=== PATIENT | female | born 1940 | race Caucasian/White ===

== ENCOUNTER 2016-08-07 10:29 | Observation (INO) | payer MEDICARE ==
[~2016-08-07] VITALS: Ht 157.5 cm; Wt 86.0 kg
[~2016-08-07 10:29] MED LIST: ASPI81TA82 PO; NORV5TAB PO; PRAV40TA2 PO; PROT40TA PO; RIVA15 PO; RIVA20 PO; TRAM50 PO; Z.0.WALKERFRONT
[2016-08-07 10:40] VITALS: BP 127/73; PULSE 74; RESP 18; TEMP 97.8; O2SAT 99
[2016-08-07 10:45] VITALS: RESP 18; O2SAT 98
[2016-08-07] MEDS ORDERED: ASPI1TAB69 PO (10:47)
[2016-08-07 10:53] VITALS: BP_SYST 120; BP_SYST 127; BP_DIAS 59; BP_DIAS 73; PULSE 78; RESP 18; O2SAT 98
--- NOTE | 2016-08-07 10:53 | PD ---
HPI Chief Complaint: Chest Pain Time Seen by Provider: 10:39 Travel History International Travel<30 days: No Contact w/Intl Traveler<30days: No Traveled to known affect area: No History of Present Illness HPI The patient is a 76-year-old female who presents to the emergency department via EMS for chest pain. The patient states she awakened at 3 AM to use the restroom and when she walked back to the bedroom she developed chest pain. The chest pain was located over the mid sternal area to right aspect of the chest, radiated to the neck and jaw as well as the right shoulder. The pain initially was dull and achy, now is described as sharp. The chest pain is resolved but she continues to have right shoulder and right sided neck and jaw pain. The patient denies any shortness of breath, nausea, or vomiting. She did complain of mild dizziness with the chest pain, states it is similar to the pain she had several years ago when she had a stent placed by her deblocker, Dr. Davila. The patient stopped most of her medications on her own including Norvasc, pravastatin, and Xarelto. The patient only takes a baby aspirin daily. The patient does have a history of CAD with previous stent placement, tobacco use, and hyperlipidemia. She denies any history of diabetes or hypertension. The patient also states she does not currently have a primary physician. PFSH Past Medical History Hx Anticoagulant Therapy: Yes Arthritis: Yes Asthma: No Autoimmune Disease: No Blood Disorders: No Anxiety: No Depression: No Heart Rhythm Problems: No Cancer: No Cardiac Catheterization: Yes (X1 STENT 05/25/2012) Cardiovascular Problems: Yes (HBP, [place] ) High Cholesterol: No Chest Pain: Yes Congestive Heart Failure: No COPD: No Cerebrovascular Accident: No Diabetes: No Diminished Hearing: No GERD: No Glaucoma: No Genitourinary: No Headaches: Yes Hiatal Hernia: No Hypertension: Yes Kidney Stones: No Musculoskeletal: Yes (FX RIBS, LEG,ARM) Neurologic: Yes (FX SKULL) Psychiatric: No Respiratory: No Renal Failure: No Seizures: No Sleep Apnea: No Ulcer: No Menopausal: Yes : 6 Para: 5 Ectopic : Yes Past Surgical History Abdominal Surgery: Yes (APPENDECTOMY) Appendectomy: Yes Cardiac Surgery: Yes (STENTS ) Section: Yes Cholecystectomy: Yes Ear Surgery: No Endocrine Surgery: Yes (FX SKULL/SURG) Eye Surgery: No Genitourinary Surgery: No Gynecologic Surgery: No Hysterectomy: Yes Neurologic Surgery: Yes Oral Surgery: Yes (TEETH PULLED) Thoracic Surgery: Yes (RIBS BROKEN) Other Surgery: Yes (PUNCTURED LIVER) Social History Alcohol Use: Yes (RARE) Tobacco Use: Yes (1 ppd) Substance Use: No Allergies-Medications (Allergen,Severity, Reaction): Coded Allergies: No Known Allergies (Verified , 08/07/16) Reported Meds & Prescriptions Reported Meds & Active Scripts Active Reported Aspirin 81 Mg Tabdr 81 Mg PO DAILY Review of Systems Except as stated in HPI: all other systems reviewed are Neg General / Constitutional: No: Fever HENT: No: Lightheadedness Cardiovascular: Positive: Chest Pain or Discomfort, No: Dyspnea on exertion Respiratory: No: Shortness of Breath Gastrointestinal: No: Nausea, Vomiting, Abdominal Pain Neurologic: Positive: Dizziness Physical Exam Narrative GENERAL: Awake, alert, pleasant 76-year-old female who appears her stated age and is in no acute respiratory distress. SKIN: Focused skin assessment warm/dry. HEAD: Atraumatic. Normocephalic. EYES: No injection or drainage. ENT: No nasal bleeding or discharge. Mucous membranes pink and moist. NECK: Trachea midline. No JVD. CARDIOVASCULAR: Regular rate and rhythm. No murmur appreciated. Palpation the chest wall does not reproduce her symptoms. RESPIRATORY: No accessory muscle use. Clear to auscultation. Breath sounds equal bilaterally. GASTROINTESTINAL: Abdomen soft, non-tender, nondistended. No rebound tenderness. MUSCULOSKELETAL: No obvious deformities. No clubbing. No cyanosis. No edema. Extension of the shoulder and abduction and adduction of the right shoulder does not reproduce her symptoms. NEUROLOGICAL: Awake and alert. No obvious cranial nerve deficits. Motor grossly within normal limits. Normal speech. Nonfocal. PSYCHIATRIC: Appropriate mood and affect; insight and judgment normal. Data Data Last Documented VS Vital Signs Date Time Temp Pulse Resp B/P Pulse Ox O2 Delivery O2 Flow Rate FiO2 08/07/16 10:53 78 18 127/73 98 Room Air 120/59 08/07/16 10:40 97.8 Orders Electrocardiogram (08/07/16 ) Electrocardiogram (08/07/16 10:46) Ckmb (Isoenzyme) Profile (08/07/16 10:46) Complete Blood Count With Diff (08/07/16 10:46) Comprehensive Metabolic Panel (08/07/16 10:46) Magnesium (Mg) (08/07/16 10:46) Prothrombin Time / Inr (Pt) (08/07/16 10:46) Act Partial Throm Time (Ptt) (08/07/16 10:46) Troponin I (08/07/16 10:46) Lipase (08/07/16 10:46) Chest, Single Ap (08/07/16 10:46) Ecg Monitoring (08/07/16 10:46) Bilateral Bp Monitoring (08/07/16 10:46) Iv Access Insert/Monitor (08/07/16 10:46) Oximetry (08/07/16 10:46) Oxygen Administration (08/07/16 10:46) Nitroglycerin 2% Oint (Nitroglycerin 2% (08/07/16 11:00) Sodium Chloride 0.9% Flush (Ns Flush) (08/07/16 11:00) Sodium Chlorid 0.9% 500 Ml Inj (Ns 500 M (08/07/16 11:00) Ct Pulmonary Angiogram (08/07/16 ) Iohexol 350 Inj (Omnipaque 350 Inj) (08/07/16 12:28) Labs Laboratory Tests Test 08/07/16 10:53 White Blood Count 7.2 TH/MM3 Red Blood Count 4.61 MIL/MM3 Hemoglobin 14.0 GM/DL Hematocrit 42.5 % Mean Corpuscular Volume 92.1 FL Mean Corpuscular Hemoglobin 30.3 PG Mean Corpuscular Hemoglobin 32.9 % Concent Red Cell Distribution Width 14.6 % Platelet Count 184 TH/MM3 Mean Platelet Volume 9.3 FL Neutrophils (%) (Auto) 52.1 % Lymphocytes (%) (Auto) 33.3 % Monocytes (%) (Auto) 10.3 % Eosinophils (%) (Auto) 3.7 % Basophils (%) (Auto) 0.6 % Neutrophils # (Auto) 3.7 TH/MM3 Lymphocytes # (Auto) 2.4 TH/MM3 Monocytes # (Auto) 0.7 TH/MM3 Eosinophils # (Auto) 0.3 TH/MM3 Basophils # (Auto) 0.0 TH/MM3 CBC Comment DIFF FINAL Differential Comment Prothrombin Time 11.2 SEC Prothromb Time International 1.0 RATIO Ratio Activated Partial 24.0 SEC Thromboplast Time Sodium Level 141 MEQ/L Potassium Level 3.7 MEQ/L Chloride Level 108 MEQ/L Carbon Dioxide Level 28.7 MEQ/L Anion Gap 4 MEQ/L Blood Urea Nitrogen 13 MG/DL Creatinine 0.60 MG/DL Estimat Glomerular Filtration 98 ML/MIN Rate Random Glucose 97 MG/DL Calcium Level 8.7 MG/DL Magnesium Level 1.8 MG/DL Total Bilirubin 0.3 MG/DL Aspartate Amino Transf 14 U/L (AST/SGOT) Alanine Aminotransferase 19 U/L (ALT/SGPT) Alkaline Phosphatase 87 U/L Total Creatine Kinase 72 U/L Troponin I LESS THAN 0.02 NG/ML Total Protein 5.7 GM/DL Albumin 3.0 GM/DL Lipase 122 U/L Exceptions Acute Myocardial Infarction ASA Not Given on Arrival: Already Given by EMS MDM Medical Decision Making Medical Screen Exam Complete: Yes Emergency Medical Condition: Yes Medical Record Reviewed: Yes Interpretation(s) EKG reveals normal sinus rhythm with a rate of 76. RSR prime in V1. Last Impressions Chest X-Ray 08/07/16 1046 Signed Impressions: Service Date/Time: Sunday, August 07, 2016 10:44 - CONCLUSION: No acute disease. Kemar Hernandez MD Laboratory Tests Test 08/07/16 10:53 White Blood Count 7.2 TH/MM3 Red Blood Count 4.61 MIL/MM3 Hemoglobin 14.0 GM/DL Hematocrit 42.5 % Mean Corpuscular Volume 92.1 FL Mean Corpuscular Hemoglobin 30.3 PG Mean Corpuscular Hemoglobin 32.9 % Concent Red Cell Distribution Width 14.6 % Platelet Count 184 TH/MM3 Mean Platelet Volume 9.3 FL Neutrophils (%) (Auto) 52.1 % Lymphocytes (%) (Auto) 33.3 % Monocytes (%) (Auto) 10.3 % Eosinophils (%) (Auto) 3.7 % Basophils (%) (Auto) 0.6 % Neutrophils # (Auto) 3.7 TH/MM3 Lymphocytes # (Auto) 2.4 TH/MM3 Monocytes # (Auto) 0.7 TH/MM3 Eosinophils # (Auto) 0.3 TH/MM3 Basophils # (Auto) 0.0 TH/MM3 CBC Comment DIFF FINAL Differential Comment Prothrombin Time 11.2 SEC Prothromb Time International 1.0 RATIO Ratio Activated Partial 24.0 SEC Thromboplast Time Sodium Level 141 MEQ/L Potassium Level 3.7 MEQ/L Chloride Level 108 MEQ/L Carbon Dioxide Level 28.7 MEQ/L Anion Gap 4 MEQ/L Blood Urea Nitrogen 13 MG/DL Creatinine 0.60 MG/DL Estimat Glomerular Filtration 98 ML/MIN Rate Random Glucose 97 MG/DL Calcium Level 8.7 MG/DL Magnesium Level 1.8 MG/DL Total Bilirubin 0.3 MG/DL Aspartate Amino Transf 14 U/L (AST/SGOT) Alanine Aminotransferase 19 U/L (ALT/SGPT) Alkaline Phosphatase 87 U/L Total Creatine Kinase 72 U/L Troponin I LESS THAN 0.02 NG/ML Total Protein 5.7 GM/DL Albumin 3.0 GM/DL Lipase 122 U/L CT pulmonary angiogram is negative for PE. No infiltrate or pleural effusion. Left renal low densities, indeterminate. Renal ultrasound maybe warranted. Differential Diagnosis Differential diagnosis includes acute coronary syndrome, GERD, esophageal spasm , neuropathy, rotator cuff injury, costochondritis, pleural effusion, pneumonia , Pancoast tumor. Narrative Course IV was established, labs are drawn and sent, and the patient was placed on cardiac telemetry monitoring and continuous pulse oximetry monitoring. EKG was ordered and interpreted. Chest x-ray was obtained. The patient received aspirin by EMS prior to arrival. The patient was placed on Nitropaste and administer 500 cc of normal saline. I reviewed the patient's EMR, she had a stent placed by Dr. Davila on June 23, 2012, a branch off of the LAD with 85% stenosis. The patient does have multiple risk factors including CAD, hyperlipidemia, tobacco use, is currently noncompliant. Chest x-rays unremarkable. Initial troponin is negative. The patient was reevaluated at 11: 40 AM, her pain was resolving. Therefore, call was placed to her deblocker, Dr. Jigar Davila, at 11:45 AM. I discussed patient Dr. Davila who states the patient does have a history of PE, recommended CT for angiogram for possible PE. If CTA is negative, he recommends admission to the chest pain Center. The patient's CT pulmonary angiogram is negative, patient will be admitted to the chest pain center. Physician Communication Physician Communication The patient will be 23 hour observation to the chest pain center for serial cardiac enzymes and further evaluation by cardiology. Diagnosis Primary Impression: Atypical chest pain Admitting Information Admitting Physician Requests: Observation Condition: Stable Olivas,[place] Z. MD August 07, 2016 10:53
[2016-08-07] MEDS ORDERED: SODIUM CHLORID 0.9% 500 ML INJ 500 ML IV ONE (11:00)
[2016-08-07] MEDS ORDERED: SODIUM CHLORIDE 0.9% FLUSH 10 ML FLUSH IVF PRN (11:00)
[2016-08-07] MEDS ORDERED: NITROGLYCERIN 2% OINT 1 GM PACKET TOP ONE (11:00)
[2016-08-07 11:10] LABS: AUTOMATED NEUTROPHIL # 3.7 TH/MM3 (1.8-7.7); BASOPHIL % 0.6 % (0.0-2.0); EOSINOPHIL # 0.3 TH/MM3 (0-0.4); EOSINOPHIL % 3.7 % (0.0-4.0); HEMATOCRIT 42.5 % (35.0-46.0); HEMO FLAGS DIFF FINAL; LYMPH % 33.3 % (9.0-44.0); LYMPHOCYTE # 2.4 TH/MM3 (1.0-4.8); MEAN CELL VOLUME 92.1 FL (80.0-100.0); MEAN CORPUSCULAR HEMOGLOBIN 30.3 PG (27.0-34.0); MEAN CORPUSCULAR HGB CONC 32.9 % (32.0-36.0); MONO % 10.3 % (0.0-8.0); NEUT % 52.1 % (16.0-70.0); PLATELET COUNT 184 TH/MM3 (150-450); RED BLOOD COUNT 4.61 MIL/MM3 (4.00-5.30); RED CELL DISTRIBUTION WIDTH 14.6 % (11.6-17.2); WHITE BLOOD COUNT 7.2 TH/MM3 (4.0-11.0)
--- NOTE | 2016-08-07 11:16 | RADRPT ---
EXAM DATE/TIME: 08/07/2016 10:44 [facility] COMPARISON: CHEST SINGLE AP, December 04, 2015, 23:15. INDICATIONS : Chest pains left chest wall with pressure. MEDICAL HISTORY : Myocardial infarction. SURGICAL HISTORY : Coronary artery stent. ENCOUNTER: Initial ACUITY: 1 day PAIN SCORE: 6/10 LOCATION: Left chest FINDINGS: A single view of the chest demonstrates the lungs to be symmetrically aerated without evidence of mas s, infiltrate or effusion. The cardiomediastinal contours are unremarkable. Osseous structures are intact. CONCLUSION: No acute disease. Kemar Hernandez MD on August 07, 2016 at 11:13 Board Certified Radiologist. This report was verified electronically.
[2016-08-07 11:19] LABS: PROTHROMBIN TIME - PATIENT 11.2 SEC (9.8-11.6)
[2016-08-07 11:30] LABS: ALT (GPT) 19 U/L (10-53); ANION GAP 4 MEQ/L (5-15); AST (GOT) 14 U/L (15-37); BICARBONATE 28.7 MEQ/L (21.0-32.0); BLOOD UREA NITROGEN 13 MG/DL (7-18); CHLORIDE 108 MEQ/L (98-107); GLOMERULAR FILTRATION RATE 98 ML/MIN (>89); MAGNESIUM 1.8 MG/DL (1.5-2.5); POTASSIUM 3.7 MEQ/L (3.5-5.1); SODIUM (NA) 141 MEQ/L (136-145)
[2016-08-07 11:41] LABS: ALKALINE PHOSPHATASE 87 U/L (45-117); TOTAL BILIRUBIN ADULT 0.3 MG/DL (0.2-1.0)
[2016-08-07 11:42] LABS: CREATINE KINASE 72 U/L (26-192)
[2016-08-07] MEDS ORDERED: IOHEXOL 350 MG/ML 10 ML VIAL (for RAD DIAG) IV ONE (12:28)
--- NOTE | 2016-08-07 12:38 | RADRPT ---
EXAM DATE/TIME: 08/07/2016 12:17 [facility] COMPARISON: No previous studies available for comparison. INDICATIONS : Chest pain , evaluate for possible pulmonary emoblism IV CONTRAST: 69 cc Omnipaque 350 (iohexol) IV RADIATION DOSE: 23.51 CTDIvol (mGy) MEDICAL HISTORY : Cardiovascular disease. Hypertension. SURGICAL HISTORY : Appendectomy. Cholecystectomy.Hysterectomy. ENCOUNTER: Initial ACUITY: 1 day PAIN SCALE: 4/10 LOCATION: chest TECHNIQUE: Volumetric scanning of the chest was performed using a pulmonary embolism protocol MIP images were re constructed. Using automated exposure control and adjustment of the mA and/or kV according to patien t size, radiation dose was kept as low as reasonably achievable to obtain optimal diagnostic quality images. FINDINGS: PULMONARY ARTERIES: No filling defects are seen in the pulmonary arteries through the segmental level. LUNGS: There is no consolidation or pneumothorax . No concerning pulmonary nodule is visualized. PLEURAE: There is no pleural thickening or pleural effusion. MEDIASTINUM: There is good visualization of the great vessels of the middle mediastinum. No evidence of mediastin al or hilar adenopathy/mass. Minimal pericardial effusion. MUSCULOSKELETAL: Within normal limits for patient age. MISCELLANEOUS: The visualized upper abdominal organs demonstrate no acute abnormality. CONCLUSION: 1. No evidence for pulmonary embolism. 2. No infiltrate or pleural effusion. 3. Left renal low densities, indeterminate. Renal ultrasound may be warranted. Kemar Hernandez MD on August 07, 2016 at 12:33 Board Certified Radiologist. This report was verified electronically.
[2016-08-07 13:00] VITALS: BP 125/68; PULSE 62; RESP 16; TEMP 98.1; O2SAT 98
[2016-08-07] MEDS ORDERED: PANTOPRAZOLE SOD 40 MG DELAYED RELEASE TAB PO SCH (14:00)
[2016-08-07] MEDS ORDERED: ALPRAZolam 0.25 MG TAB PO PRN (14:00)
[2016-08-07] MEDS ORDERED: ONDANSETRON HCL 4 MG/2 ML VIAL IV PRN (14:00)
[2016-08-07] MEDS ORDERED: ACETAMINOPHEN/HYDROcodone 325 MG/7.5 MG TAB PO PRN (14:00)
[2016-08-07] MEDS ORDERED: SODIUM CHLORIDE 0.9% FLUSH 5 ML FLUSH IVF PRN (14:00)
[2016-08-07] MEDS ORDERED: ACETAMINOPHEN 500 MG CPLT PO PRN (14:00)
[2016-08-07] MEDS ORDERED: KETOROLAC TROMETHAMINE 30 MG/ML (IVP) VIAL IVP ONE (15:00)
--- NOTE | 2016-08-07 15:18 | HHI.HP ---
HPI Primary Care Physician No Primary Care Physician Chief Complaint Chest pain History of Present Illness This is a 76-year-old female that presents to ED via private vehicle complaining of chest pain. As she states she has chest pain she is pointing to her right arm and shoulder. She states she's been having pain in her right arm/ shoulder radiates up into the right side of her neck and other times times radiates from the neck down to the arm. He has been constantly there for 2 weeks. It is worsened when she abducts the arm and with certain movements of her neck. Cannot recall trauma. Denies other types of discomfort. She does have history of CAD. She had a stent of the diagonal in [address] Jigar Davila. She hasn't seen him in about 2 years. She also hasn't taken her medications for at least a year and a half. She states she should be taking Norvasc, pravastatin, and Xarelto which she was taking for PE that she had a couple years ago. The discomfort that she is having is not similar to when she dated her stent in 2012. Denies recent illnesses. Denies fevers or chills. Denies associated shortness breath, nausea, and diaphoresis. Review of Systems General: Patient denies fevers, chills recent, and recent travel HEENT: Patient denies headache, sore throat, difficulty swallowing. Cardiovascular: Has the chest discomfort as mentioned above. Denies sensation of heart beating rapidly or irregularly. No syncope. Denies diaphoresis. Respiratory: Denies shortness of breath or inspirational chest discomfort. Denies coughing wheezing or hemoptysis. GI: Patient denies nausea, vomiting, diarrhea, abdominal pain, bloody stools. Musculoskeletal: Complains of right shoulder and neck pain as mentioned above. Denies trauma. Denies calf pain or edema. Neurovascular: Patient denies numbness, tingling, weakness in extremities. Denies headache. Endocrine: Denies polyuria and polydipsia. Hematologic: Denies easy bruising. Skin: Denies rash or itching. Past Family Social History Allergies: Coded Allergies: No Known Allergies (Verified , 08/07/16) Past Medical History Coronary artery disease. Hyperlipidemia. Pulmonary embolus a couple years ago. Tobacco abuse. Medication noncompliance. Denies hypertension and diabetes. Past Surgical History Noncontributory. Reported Medications Reported Meds & Active Scripts Active Reported Aspirin 81 Mg Tabdr 81 Mg PO DAILY Active Ordered Medications Current Medications Medications (Trade) Dose Ordered Sig/Susie Route Start Time Stop Time Status Last Admin (NS Flush) 2 ml UNSCH PRN IVF 08/07/16 14:00 (NS Flush) 2 ml BID IVF 08/07/16 21:00 (Tylenol) 500 mg Q4H PRN PO 08/07/16 14:00 ([place] 7.5-325 Mg) 1 tab Q4H PRN PO 08/07/16 14:00 (Zofran Inj) 4 mg Q6H PRN IV 08/07/16 14:00 (Protonix) 40 mg DAILY PO 08/07/16 14:00 08/07/16 14:32 (Aspirin) 325 mg DAILY PO 08/08/16 09:00 (Xanax) 0.25 mg Q8H PRN PO 08/07/16 14:00 Family History Patient is unaware of her family history. States she was an orphan. Social History Patient continues to smoke cigarettes. She isn't smoking three-quarter pack of cigarettes daily for 45 years. She has occasional alcohol. Denies illicit drugs. She states that her daughter, several grandchildren, and her daughter's live with her. Physical Exam Vital Signs Vital Signs Date Time Temp Pulse Resp B/P Pulse Ox O2 Delivery O2 Flow Rate FiO2 08/07/16 13:00 98.1 62 16 125/68 98 Room Air 08/07/16 10:53 78 18 127/73 98 Room Air 120/59 08/07/16 10:47 71 17 98 Room Air 08/07/16 10:45 18 98 Room Air 08/07/16 10:45 98 Room Air 08/07/16 10:40 97.8 74 18 127/73 99 Physical Exam GENERAL: This is a well-nourished, well-developed patient, in no apparent distress. Patient speaks in clear complete sentences. Patient is pleasant. HEENT: Head is atraumatic and normocephalic. Neck is supple without lymphadenopathy and trachea is midline. No JVD or carotid bruits. CARDIOVASCULAR: Regular rate and rhythm without murmurs, gallops, or rubs. RESPIRATORY: Clear to auscultation. Breath sounds equal bilaterally. No wheezes , rales, or rhonchi. Chest wall is nontender. No use of accessory muscles. GASTROINTESTINAL: Abdomen is nontender, nondistended. Abdomen soft. No obvious pulsatile mass or bruit. No CVA tenderness. Strong femoral pulses bilaterally. Normal bowel sounds in all quadrants. MUSCULOSKELETAL: There is discomfort when palpating over the right deltoid region. There is discomfort with abduction. Patient is moving lower extremities freely. No calf tenderness or edema, no Homans sign. Strong pulses in upper and lower extremities. No spinous processes point tenderness in palpating cervical, thoracic, or lumbar spine. NEUROLOGICAL: Patient is alert and oriented. Cranial nerves 2-12 are grossly intact. Strong ed teacher strength bilaterally. No focal deficits and speech is clear. SKIN: No rash and turgor is normal. Laboratory Laboratory Tests Test 08/07/16 10:53 White Blood Count 7.2 Red Blood Count 4.61 Hemoglobin 14.0 Hematocrit 42.5 Mean Corpuscular Volume 92.1 Mean Corpuscular Hemoglobin 30.3 Mean Corpuscular Hemoglobin 32.9 Concent Red Cell Distribution Width 14.6 Platelet Count 184 Mean Platelet Volume 9.3 Neutrophils (%) (Auto) 52.1 Lymphocytes (%) (Auto) 33.3 Monocytes (%) (Auto) 10.3 Eosinophils (%) (Auto) 3.7 Basophils (%) (Auto) 0.6 Neutrophils # (Auto) 3.7 Lymphocytes # (Auto) 2.4 Monocytes # (Auto) 0.7 Eosinophils # (Auto) 0.3 Basophils # (Auto) 0.0 CBC Comment DIFF FINAL Differential Comment Prothrombin Time 11.2 Prothromb Time International 1.0 Ratio Activated Partial 24.0 Thromboplast Time Sodium Level 141 Potassium Level 3.7 Chloride Level 108 Carbon Dioxide Level 28.7 Anion Gap 4 Blood Urea Nitrogen 13 Creatinine 0.60 Estimat Glomerular Filtration 98 Rate Random Glucose 97 Calcium Level 8.7 Magnesium Level 1.8 Total Bilirubin 0.3 Aspartate Amino Transf 14 (AST/SGOT) Alanine Aminotransferase 19 (ALT/SGPT) Alkaline Phosphatase 87 Total Creatine Kinase 72 Troponin I LESS THAN 0.02 Total Protein 5.7 Albumin 3.0 Lipase 122 Result Diagram: 08/07/16 1053 08/07/16 1053 Assessment and Plan Assessment and Plan * Atypical chest pain: Patient will continue to have serial cardiac enzymes and EKGs for ruling out purposes. She will be seen by Dr. Bolton of cardiology in the chest pain center and at that point we'll determine further plan. I also discussed this patient with Dr. Jigar Daivla. He states that he does not follow the patient a longer as she has not followed up. Patient will need to make arrangements follow-up with her web communications specialist in outpatient basis and should follow-up with her primary care physician as well. We will give the patient Toradol. We will get a C-spine x-ray also. * Hyperlipidemia: Patient admits to noncompliance of medication. She should go back on statin medication. * CAD: Patient will be evaluated by Dr. Bolton cardiology. Further plan to be determined after that evaluation. She is to have an outpatient web communications specialist as well. * Tobacco abuse: Patient has been counseled on the importance of smoking cessation. Patient is stable at this time. She is agreeable to this plan. Margarito Briceño August 07, 2016 15:18
--- NOTE | 2016-08-07 15:29 | RADRPT ---
EXAM DATE/TIME: 08/07/2016 14:26 [facility] COMPARISON: No previous studies available for comparison. INDICATIONS : Right side neck pain and swelling. MEDICAL HISTORY : Hypertension. SURGICAL HISTORY : Brain surgery. ENCOUNTER: Initial ACUITY: 2 weeks PAIN SCORE: 0/10 LOCATION: Right Neck/chest FINDINGS: Frontal and lateral views of the cervical spine show normal alignment. Diffuse osteopenia. Diffuse di sc space narrowing. Disc space narrowing with anterior osteophyte production at C4-C5, C5-C6, and C6- C7. No fracture or dislocation. Paraspinal soft tissues are unremarkable. CONCLUSION: Osteopenia and degenerative changes without acute abnormality. Zack Zabala Jr., MD on August 07, 2016 at 15:26 Board Certified Radiologist. This report was verified electronically.
[2016-08-07 15:35] LABS: CREATINE KINASE 109 U/L (26-192)
[2016-08-07 15:47] LABS: CKMB 6.9 NG/ML (0.5-3.6)
--- NOTE | 2016-08-07 16:25 | HHI.DCPOC ---
Discharge Care Plan Diagnosis: (1) Chest pain, atypical (2) CAD (coronary artery disease) (3) H/O heart artery stent (4) Abnormal CT of the chest (5) Tobacco abuse (6) Hyperlipidemia Goals to Promote Your Health YOU WILL NEED TO HAVE AN OUTPATIENT ULTRASOUND OF YOUR KIDNEYS TO EVALUATE KIDNEY DENSITIES THAT WERE SEEN ON CT. DISCUSS THIS WITH YOUR PRIMARY CARE PHYSICIAN WITHIN THE NEXT 7-10 DAYS. FOLLOW UP WITH YOUR ORTHOPEDIST TO EVALUATE YOUR RIGHT SHOULDER AND NECK PAIN. * To prevent worsening of your condition and complications * To maintain your health at the optimal level Directions to Meet Your Goals Take your medications as prescribed Follow your dietary instruction Follow activity as directed Keep your appointments as scheduled Take your immunizations and boosters as scheduled If your symptoms worsen call your PCP, if no PCP go to Urgent Care Center or Emergency Room Smoking is Dangerous to Your Health. Avoid second hand smoke Call the 24-hour hour crisis hotline for domestic abuse at Margarito Briceño August 07, 2016 16:25
--- NOTE | 2016-08-07 17:21 | EKG ---
Date Performed: 08/07/2016 Time Performed: 14:44:12 PTAGE: 76 years EKG: Sinus rhythm POSSIBLE RIGHT VENTRICULAR CONDUCTION DELAY BORDERLINE ECG Since PREVIOUS TRACING , no significant change noted PREVIOUS TRACIN08/07/2016 10.44 DOCTOR: Shoshana Bolton Interpretating Date/Time 08/07/2016 17:20:51
[2016-08-07] MEDS ORDERED: REGADENOSON INJ 0.4 MG/5 ML SYR ONE (17:26)
--- NOTE | 2016-08-07 19:21 | RADRPT ---
EXAM DATE/TIME: 08/07/2016 17:22 [facility] COMPARISON: No previous studies available for comparison. INDICATIONS : Midsternal chest pain radiating to the neck, jaw and right shoulder. Angina. DOSE: 25.4 mCi Tc99m Myoview at stress. 8.5 mCi Tc99m Myoview at rest. 0.4 mg Lexiscan STRESS SYMPTOMS: Dyspnea. EJECTION FRACTION: > 70% MEDICAL HISTORY : Myocardial infarction. Smoker. SURGICAL HISTORY : Hysterectomy. Coronary artery stent. Cholecystectomy. ENCOUNTER: Initial ACUITY: 1 day PAIN SCALE: 6/10 LOCATION: Midsternal chest TECHNIQUE: The patient underwent pharmacologic stress with infusion of prescribed dose. Continuous ECG tracing was monitored during stress. Gated SPECT imaging was performed after stress and conventional SPECT i maging was performed at rest. The examination was performed on a SPECT/CT scanner, both attenuation and non-corrected datasets were reviewed. FINDINGS: DISTRIBUTION: The maximum perfused segment at stress is in the anterolateral wall. PERFUSION STUDY: The pattern of perfusion at stress is within normal limits. GATED STUDY: There is intact wall motion and thickening without hypokinetic or dyskinetic segments. CONCLUSION: 1. No significant reversibility to suggest ischemia. 2. Normal wall motion with ejection fraction greater than 70%. RISK CATEGORY: Low (<1% Annual Mortality Rate) Markel Allen MD on August 07, 2016 at 19:14 Board Certified Radiologist. This report was verified electronically.
[2016-08-07] MEDS ORDERED: SODIUM CHLORIDE 0.9% FLUSH 5 ML FLUSH IVF SCH (21:00)
[2016-08-08] MEDS ORDERED: ASPIRIN 325 MG TAB PO SCH (09:00)
--- NOTE | 2016-08-08 11:16 | EKG ---
Date Performed: 08/07/2016 Time Performed: 10:44:07 PTAGE: 76 years EKG: Sinus rhythm POSSIBLE RIGHT VENTRICULAR CONDUCTION DELAY BORDERLINE ECG PREVIOUS TRACING : 12/04/2015 23.07 DOCTOR: Fran Hernandez Interpretating Date/Time 08/08/2016 11:15:30
--- NOTE | 2016-08-09 12:37 | TR ---
Date Performed: 08/07/2016 Time Performed: 18:01:19 DOCTOR: Servando Goode DRUG LIST: CLINICAL HISTORY: CHEST PAIN REASON FOR TEST: CHEST PAIN REASON FOR ENDING: OBSERVATION: CONCLUSION: Lexiscan stress test was performed under standard four minute protocol. Radionuclid e was injected one minute prior to ending the test. No electrocardiographic abormalities were present to suggest ischemia. Nuclear imaging and interpretation are pending. COMMENTS:
== END 2016-08-07 20:45 | disposition home or self-care (01) ==
LOC: NEPE 10:29 → NEDA 12:42 → NEPHCDU 15:24
PROVIDERS: ADMIT Internal Medicine Interventional Cardiology; ATTEND Internal Medicine Interventional Cardiology
DX: I25.10 Atherosclerotic heart disease of native coronary artery without angina pectoris (principal); I10 Essential (primary) hypertension; E78.5 Hyperlipidemia, unspecified; F17.210 Nicotine dependence, cigarettes, uncomplicated; Z79.82 Long term (current) use of aspirin; Z86.711 Personal history of pulmonary embolism; Z91.14 Patient's other noncompliance with medication regimen; Z95.5 Presence of coronary angioplasty implant and graft; Z79.01 Long term (current) use of anticoagulants
CPT/HCPCS: 71010; 71275; 72040; 78452; 80053; 82550; 82552; 83690; 83735; 84484; 85025; 85610; 85730; 93005; 93017; 96360; 99285; A9502; G0378; J1885; J2785; J7040; Q9967

== ENCOUNTER 2017-05-13 02:29 | Observation (INO) | payer MEDICARE ==
[~2017-05-13] VITALS: Ht 167.6 cm; Wt 88.0 kg
[2017-05-13] VITALS (8 sets, daily range): BP systolic 96–141; BP diastolic 50–76; PULSE 61–71; RESP 16–20; TEMP 97.6–98; O2SAT 97–100
[~2017-05-13 02:29] MED LIST changes: +ASPI1TAB69 PO; -ASPI81TA82 PO; -NORV5TAB PO; -PRAV40TA2 PO; -PROT40TA PO; -RIVA15 PO; -RIVA20 PO; -TRAM50 PO; -Z.0.WALKERFRONT
[2017-05-13] MEDS ORDERED: ASPI81CH6 CHEW (02:31)
[2017-05-13] MEDS ORDERED: NITROGLYCERIN 0.4 MG SL 25 TABS/BTL SL ONE (02:45)
[2017-05-13] MEDS ORDERED: SODIUM CHLORIDE 0.9% FLUSH 10 ML FLUSH IVF PRN (02:45)
[2017-05-13] MEDS ORDERED: NITROGLYCERIN 2% OINT 1 GM PACKET TOP ONE (02:45)
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
--- NOTE | 2017-05-13 02:59 | RADRPT ---
EXAM DATE/TIME: 05/13/2017 02:47 [facility] COMPARISON: CHEST SINGLE AP, August 07, 2016, 10:44. INDICATIONS : Chest pain. MEDICAL HISTORY : Myocardial infarction. SURGICAL HISTORY : Coronary artery stent. ENCOUNTER: Initial ACUITY: 1 day PAIN SCORE: 110 LOCATION: Bilateral chest FINDINGS: A single view of the chest demonstrates the lungs to be symmetrically aerated without evidence of mas s, infiltrate or effusion. The cardiomediastinal contours are unremarkable. Osseous structures are intact. There are overlying electrocardiogram leads present. CONCLUSION: No acute disease. Cristi Styles MD on May 13, 2017 at 2:57 Board Certified Radiologist. This report was verified electronically.
[2017-05-13 04:47] LABS: AUTOMATED NEUTROPHIL # 4.7 TH/MM3 (1.8-7.7); BASOPHIL # 0.1 TH/MM3 (0-0.2); BASOPHIL % 0.8 % (0.0-2.0); EOSINOPHIL # 0.3 TH/MM3 (0-0.4); EOSINOPHIL % 3.7 % (0.0-4.0); HEMATOCRIT 40.5 % (35.0-46.0); HEMOGLOBIN 13.7 GM/DL (11.6-15.3); LYMPH % 29.2 % (9.0-44.0); LYMPHOCYTE # 2.4 TH/MM3 (1.0-4.8); MEAN CELL VOLUME 91.7 FL (80.0-100.0); MEAN CORPUSCULAR HEMOGLOBIN 30.9 PG (27.0-34.0); MEAN CORPUSCULAR HGB CONC 33.7 % (32.0-36.0); MEAN PLATELET VOLUME 9.4 FL (7.0-11.0); MONO % 9.8 % (0.0-8.0); MONOCYTE # 0.8 TH/MM3 (0-0.9); NEUT % 56.5 % (16.0-70.0); PLATELET COUNT 236 TH/MM3 (150-450); RED BLOOD COUNT 4.42 MIL/MM3 (4.00-5.30); WHITE BLOOD COUNT 8.2 TH/MM3 (4.0-11.0)
[2017-05-13 04:55] LABS: INTERNATIONAL NORMALIZED RATIO 1.1 RATIO; PROTHROMBIN TIME - PATIENT 10.7 SEC (9.8-11.6)
[2017-05-13 05:14] LABS: ALBUMIN 3.2 GM/DL (3.4-5.0); AST (GOT) 16 U/L (15-37); BICARBONATE 27.3 MEQ/L (21.0-32.0); BLOOD UREA NITROGEN 19 MG/DL (7-18); CALCIUM 8.9 MG/DL (8.5-10.1); CHLORIDE 109 MEQ/L (98-107); CREATININE 0.61 MG/DL (0.50-1.00); GLOMERULAR FILTRATION RATE 96 ML/MIN (>89); GLUCOSE,RANDOM 92 MG/DL (74-106); MAGNESIUM 2.1 MG/DL (1.5-2.5); SODIUM (NA) 142 MEQ/L (136-145)
[2017-05-13 05:17] LABS: ALKALINE PHOSPHATASE 97 U/L (45-117); ALT (GPT) 18 U/L (10-53); TOTAL BILIRUBIN ADULT 0.3 MG/DL (0.2-1.0); TOTAL PROTEIN 6.2 GM/DL (6.4-8.2); TROPONIN I LESS THAN 0.02 NG/ML (0.02-0.05)
[2017-05-13] MEDS ORDERED: ACETAMINOPHEN 500 MG CPLT PO PRN (05:45)
[2017-05-13] MEDS ORDERED: ONDANSETRON HCL 4 MG/2 ML VIAL IV PUSH PRN (05:45)
[2017-05-13] MEDS ORDERED: SODIUM CHLORIDE 0.9% FLUSH 10 ML FLUSH IV FLUSH PRN (05:45)
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
[2017-05-13] MEDS ORDERED: SODIUM CHLORIDE 0.9% FLUSH 10 ML FLUSH IV FLUSH SCH (09:00)
[2017-05-13] MEDS ORDERED: FAMOTIDINE 20 MG TAB PO SCH (09:00)
[2017-05-13] MEDS ORDERED: REGADENOSON INJ 0.4 MG/5 ML SYR ONE (09:29)
[2017-05-13 09:31] LABS: TROPONIN I LESS THAN 0.02 NG/ML (0.02-0.05)
--- NOTE | 2017-05-13 11:02 | RADRPT ---
EXAM DATE/TIME: 05/13/2017 09:15 [facility] COMPARISON: MYOCARDIAL PERF PHARM SPECT, GATED W/EF, August 07, 2016, 17:22. INDICATIONS : Substernal chest pain radiating to the neck with dyspnea. Angina. DOSE: 25.9 mCi Tc99m Myoview at stress. 8.8 mCi Tc99m Myoview at rest. 0.4 mg Lexiscan STRESS SYMPTOMS: Dyspnea and dizziness. EJECTION FRACTION: 68% MEDICAL HISTORY : Congestive heart failure. SURGICAL HISTORY : Appendectomy. Cholecystectomy. Hysterectomy. ENCOUNTER: Initial ACUITY: 1 day PAIN SCALE: 10/10 LOCATION: Substernal chest TECHNIQUE: The patient underwent pharmacologic stress with infusion of prescribed dose. Continuous ECG tracing was monitored during stress. Gated SPECT imaging was performed after stress and conventional SPECT i maging was performed at rest. The examination was performed on a SPECT/CT scanner, both attenuation and non-corrected datasets were reviewed. FINDINGS: DISTRIBUTION: The maximum perfused segment at stress is in the inferior wall. PERFUSION STUDY: The pattern of perfusion at stress is within normal limits. GATED STUDY: There is intact wall motion and thickening without hypokinetic or dyskinetic segments. CONCLUSION: 1. No reversible perfusion defect to indicate stress-induced myocardial ischemia. RISK CATEGORY: Low (<1% Annual Mortality Rate) Ebenezer Caldreon MD on May 13, 2017 at 10:59 Board Certified Radiologist. This report was verified electronically.
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
--- NOTE | 2017-05-13 15:46 | EKG ---
Date Performed: 05/13/2017 Time Performed: 08:23:07 PTAGE: 77 years EKG: Sinus rhythm POSSIBLE RIGHT VENTRICULAR CONDUCTION DELAY BORDERLINE ECG WARNING: DATA QUALITY MAY AFFECT INTERPRE TATION PREVIOUS TRACING : 05/13/2017 02.31 Since previous tracing, no significant change noted DOCTOR: Servando Goode Interpretating Date/Time 05/13/2017 15:45:15
--- NOTE | 2017-05-13 15:47 | EKG ---
Date Performed: 05/13/2017 Time Performed: 02:31:45 PTAGE: 77 years EKG: Sinus rhythm POSSIBLE RIGHT VENTRICULAR CONDUCTION DELAY BORDERLINE ECG NO PREVIOUS TRACING DOCTOR: Servando Goode Interpretating Date/Time 05/13/2017 15:46:04
--- NOTE | 2017-05-13 15:58 | TR ---
Date Performed: 05/13/2017 Time Performed: 09:42:58 DOCTOR: Servando Goode DRUG LIST: CLINICAL HISTORY: CHEST PAIN REASON FOR TEST: CHEST PAIN REASON FOR ENDING: OBSERVATION: CONCLUSION: Lexiscan stress test was performed under standard four minute protocol. Radionuclid e was injected one minute prior to ending the test. No electrocardiographic abormalities were present to suggest ischemia. Nuclear imaging and interpretation are pending. COMMENTS:
== END 2017-05-13 14:45 | disposition home or self-care (01) ==
LOC: NEPC 02:29 → NEDA 05:25 → NEPGCP 06:33
DX: R07.89 Other chest pain (principal); I25.10 Atherosclerotic heart disease of native coronary artery without angina pectoris; I10 Essential (primary) hypertension; R94.31 Abnormal electrocardiogram [ECG] [EKG]; F17.210 Nicotine dependence, cigarettes, uncomplicated; Z95.5 Presence of coronary angioplasty implant and graft; Z90.710 Acquired absence of both cervix and uterus
CPT/HCPCS: 71045; 78452; 80053; 82550; 83690; 83735; 83880; 84484; 85025; 85610; 85730; 93005; 93017; 99285; A9502; G0378; J2785